=== PATIENT | female | born 1990 | race Caucasian/White ===

== ENCOUNTER 2017-09-26 11:37 | Day surgery (SDC) | payer BC ==
--- NOTE | 2017-09-26 12:19 | PCM.PREANE ---
Preanesthetic Assessment - Anesthesia/Transfusion/Family Hx Anesthesia History: Prior Anesthesia Without Reaction Family History of Anesthesia Reaction: No Transfusion History: No Prior Transfusion(s) Intubation History: Unknown - Review of Systems General: No Symptoms Pulmonary: No Symptoms Cardiovascular: No Symptoms Gastrointestinal: No Symptoms Neurological: No Symptoms Other: Reports: None - Physical Assessment Height: 1.73 m Weight: 77.564 kg ASA Class: 1 Mental Status: Alert & Oriented x3 Airway Class: Mallampati = 2 Dentition: Reports: Normal Dentition Thyro-Mental Finger Breadths: 3 Mouth Opening Finger Breadths: 3 ROM/Head Extension: Full Lungs: Clear to Auscultation, Normal Respiratory Effort Cardiovascular: Regular Rate, Regular Rhythm - Lab Values: Laboratory Last Values Blood Type A POSITIVE 09/26/17 08:55 Antibody Screen NEGATIVE 09/26/17 08:55 - Allergies Allergies/Adverse Reactions: Allergies Allergy/AdvReac Type Severity Reaction Status Date / Time No Known Allergies Allergy Verified 09/26/17 11:28 - Blood Blood Available: No - Anesthesia Plan Pre-Op Medication Ordered: None - Acknowledgements Anesthesia Type Planned: General Anesthesia Pt an Appropriate Candidate for the Planned Anesthesia: Yes Alternatives and Risks of Anesthesia Discussed w Pt/Guardian: Yes Pt/Guardian Understands and Agrees with Anesthesia Plan: Yes PreAnesthesia Questionnaire Other HEENT History: wears glasses/contacts [employer] History: Reports: (incomplete, spontaneous ) Musculoskeletal History: Reports: Fracture Other Musculoskeletal History: wrists, thumb pinky finger Neurological History: Reports: Other (See Below) Other Neuro History: motion sickness Psychiatric History: Reports: Anxiety, Depression - Past Surgical History HEENT Surgical History: Reports: Oral Surgery Other HEENT Surgeries/Procedures: wisdom teeth - SUBSTANCE USE Smoking Status *Q: Never Smoker Recreational Drug Use History: No - HOME MEDS Home Medications: Home Meds Vits #93/Iron Fum/FA [ Formula Tablet] 1 tab PO DAILY 09/26/17 [History]
[2017-09-26] MEDS ORDERED: Propofol 200 MG/20 ML SDV ONE ×2 (12:36→12:56)
[2017-09-26] MEDS ORDERED: fentaNYL 100 MCG/2 ML SDV ONE ×2 (12:36→12:57)
[2017-09-26] MEDS ORDERED: Lactated Ringers 1,000 ML IV SCH (12:45)
[2017-09-26] MEDS ORDERED: Lidocaine 2% 5 ML SDV ONE (12:56)
[2017-09-26] MEDS ORDERED: Midazolam 1 MG/ML 2 ML SDV ONE (12:57)
[2017-09-26] MEDS ORDERED: Promethazine 25 MG/ML SDV IM PRN (13:32)
[2017-09-26] MEDS ORDERED: Ketorolac 30 MG/ML SDV IVPUSH ONE (13:32)
[2017-09-26] MEDS ORDERED: Acetaminophen/oxyCODONE 325-5 MG Tab PO PRN ×2 (13:32)
[2017-09-26] MEDS ORDERED: Morphine 4 MG/ML Syringe IVPUSH PRN (13:32)
[2017-09-26] MEDS ORDERED: Morphine 2 MG/ML Syringe IVPUSH PRN (13:32)
[2017-09-26] MEDS ORDERED: Ondansetron 4 MG/2 ML SDV IVPUSH PRN (13:32)
--- NOTE | 2017-09-26 13:35 | PCM.OPNOTE ---
- General Post-Op/Procedure Note Date of Surgery/Procedure: 09/26/17 Operative Procedure(s): D&E Pre Op Diagnosis: Blighted ovum Post-Op Diagnosis: Same Anesthesia Technique: General LMA Primary Surgeon: Hema Blackmon EBL in mLs: 200 Complications: None Condition: Good
--- NOTE | 2017-09-26 13:36 | PCM.DCSUM1 ---
Discharge Summary - Discharge Data Discharge Date: 09/26/17 Discharge Disposition: Home, Self-Care 01 Condition: Good - Patient Summary/Data Operative Procedure(s) Performed: D&E - Patient Instructions Diet: Usual Diet as Tolerated Activity: As Tolerated Showering/Bathing: May Shower - Discharge Plan Home Medications: Home Meds Vits #93/Iron Fum/FA [ Formula Tablet] 1 tab PO DAILY 09/26/17 [History] - Patient Data Vitals - Most Recent: Last Vital Signs Temp 36.4 C 09/26/17 12:10 Pulse 72 09/26/17 12:10 Resp 16 09/26/17 12:10 BP 108/73 09/26/17 12:10 Pulse Ox 99 09/26/17 12:10 Weight - Most Recent: 77.564 kg Lab Results - Last 24 hrs: Laboratory Results - last 24 hr 09/26/17 Range/Units 08:55 Blood Type A POSITIVE Antibody Screen NEGATIVE Med Orders - Current: Current Medications Lactated Ringer's (Ringers, Lactated) 1,000 mls @ 100 mls/hr IV ASDIRECTED [facility] Ketorolac Tromethamine (Toradol) 30 mg IVPUSH ONETIME ONE Stop: 09/26/17 13:33 Ketorolac Tromethamine (Toradol) 30 mg IVPUSH Q6H PRN PRN Reason: Pain (severe 7-10) Stop: 10/01/17 13:32 Morphine Sulfate (Morphine) 2 mg IVPUSH Q2H PRN PRN Reason: Pain (severe 7-10) Morphine Sulfate (Morphine) 4 mg IVPUSH Q2H PRN PRN Reason: Pain (severe 7-10) Ondansetron HCl (Zofran) 4 mg IVPUSH Q6H PRN PRN Reason: Nausea/Vomiting Oxycodone/Acetaminophen (Percocet 325-5 Mg) 1 tab PO Q4H PRN PRN Reason: Pain (moderate 4-6) Oxycodone/Acetaminophen (Percocet 325-5 Mg) 2 tab PO Q4H PRN PRN Reason: Pain (moderate 4-6) Promethazine HCl (Phenergan) 25 mg IM Q6H PRN PRN Reason: Nausea/Vomiting Discontinued Medications Fentanyl (Sublimaze) Confirm Administered Dose 100 mcg .ROUTE .STK-MED ONE Stop: 09/26/17 12:37 Fentanyl (Sublimaze) Confirm Administered Dose 200 mcg .ROUTE .STK-MED ONE Stop: 09/26/17 12:58 Lidocaine (Xylocaine-Mpf 2%) Confirm Administered Dose 10 ml .ROUTE .STK-MED ONE Stop: 09/26/17 12:57 Midazolam HCl (Versed 1 Mg/Ml) Confirm Administered Dose 2 mg .ROUTE .STK-MED ONE Stop: 09/26/17 12:58 Propofol (Diprivan 20 Ml) Confirm Administered Dose 200 mg .ROUTE .STK-MED ONE Stop: 09/26/17 12:37 Propofol (Diprivan 20 Ml) Confirm Administered Dose 400 mg .ROUTE .ST-MED ONE Stop: 09/26/17 12:57 *Q Meaningful Use (DIS) - VTE *Q VTE Criteria *Q: - Stroke *Q Stroke Criteria *Q: - AMI *Q AMI Criteria *Q:
[2017-09-26] MEDS ORDERED: Ketorolac 30 MG/ML SDV IVPUSH PRN (19:30)
--- NOTE | 2017-09-26 21:53 | OR ---
SURGEON: Hema Blackmon MD DATE OF PROCEDURE: 09/26/2017 PREOPERATIVE DIAGNOSIS: Blighted ovum. POSTOPERATIVE DIAGNOSIS: Blighted ovum. OPERATION PERFORMED: Dilatation and evacuation. FIRST CALENDER WORKER: None. ANESTHESIA: LMA, Negrito Carmona. ESTIMATED BLOOD LOSS: 200 mL. COMPLICATIONS: None. INDICATION: This patient has seen in our office in combination with me and lap winder. She is supposed to be 12 weeks. She had a gestational sac, no pole. Her beta- HCG was declining. The patient was diagnosed with blighted ovum. After counseling her with her option, the patient elected to have a D and E. Her blood type is Rh positive. PROCEDURE IN DETAIL: The patient was brought to the OR, properly identified. After adequate level of anesthesia, the patient was placed in lithotomy position, prepped and draped in sterile fashion as usual. and then a straight catheter was used to empty the bladder and a single-tooth tenaculum was applied to the cervix. The cervix was sequentially dilated to accommodate a #8 cannula. The cannula was placed in the endometrial cavity and the endometrial cavity was suctioned completely in uniformity from all products of conception. Small products of conception were removed using Lizzette forceps. Once this was done, then re-suctioning and checking the endometrial cavity, making sure that was empty with a 7 cannula and the cannula was felt to be completely empty and all products of conception were removed. Once we ascertained that the procedure was ended, the instrument and hardware were retrieved from the vagina. The bleeding was stopped. The patient tolerated the procedure well and went to recovery room in stable general condition. LORRI / JOLEEN /[id number]
== END 2017-09-26 16:25 | disposition home or self-care (01) ==
LOC: MW.SDS 11:37
PROVIDERS: ATTEND Obstetrics & Gynecology
DX: O02.0 Blighted ovum and nonhydatidiform mole (principal); O02.1 Missed abortion
CPT/HCPCS: 36415; 59812; 84702; 86850; 86900; 86901; J2250; J3010; 00940; 88305; J2704